=== PATIENT | female | born 1990 | race Caucasian/White ===

== ENCOUNTER 2016-09-28 07:11 | Emergency (ER) | payer BC, OTHER ==
[2016-09-28 07:25] VITALS: BP 136/75
[2016-09-28] MEDS ORDERED: Penicillin G Benzathine 1.2MU* 1,200,000 UNITS/2 ML SYR IM ONE (07:44)
--- NOTE | 2016-09-28 07:45 | UC ---
Throat Pain/Nasal Jesus HPI - HPI Summary HPI Summary: ST and earaches for past few days. Chills, body aches - History of Current Complaint Chief Complaint: UCRespiratory Stated Complaint: BILATERAL EAR PAIN,SORE THROAT Time Seen by Provider: 09/28/16 07:15 Hx Obtained From: Patient Hx Last Menstrual Period: 3 months ago ?: No Onset/Duration: Gradual Onset, Lasting Days - 3 Severity: Moderate Cough: None Associated Signs & Symptoms: Positive: Dysphagia, Fever - chills, aching. Negative: Drooling, Hoarseness, Nasal Discharge, Vomiting, Rash - Epiglottits Risk Factors Epiglottis Risk Factors: Negative - Allergies/Home Medications Allergies/Adverse Reactions: Allergies Allergy/AdvReac Type Severity Reaction Status Date / Time No Known Allergies Allergy Verified 09/28/16 07:19 Home Medications: Home Medications Dextromethorphan-Phenylephrine [Daytime Multi Symptom Col] 1 cap PO BID PRN 06/06 [History Confirmed 09/28/16] PMH/Surg Hx/FS Hx/Imm Hx Previously Healthy: Yes - "prone to Strep as child" - Surgical History Surgical History: Yes Surgery Procedure, Year, and Place: Appendectomy, 2006, [place]. Cholecystectomy, 2009, [place] - Family History Known Family History: Negative: Respiratory Disease - Social History Occupation: Employed Full-time Lives: With Family Alcohol Use: None Substance Use Type: None Smoking Status (MU): Never Smoked Tobacco Review of Systems Constitutional: Fever, Chills, Fatigue Skin: Negative Eyes: Negative ENT: Sore Throat, Ear Ache - bilat Respiratory: Negative Cardiovascular: Negative Gastrointestinal: Negative Genitourinary: Negative Motor: Negative Neurovascular: Negative Musculoskeletal: Negative Neurological: Negative Psychological: Negative All Other Systems Reviewed And Are Negative: Yes Physical Exam Triage Information Reviewed: Yes Appearance: Well-Appearing, No Pain Distress, Well-Nourished Vital Signs: Initial Vital Signs Temp 98 F 09/28/16 07:20 Pulse 91 09/28/16 07:20 Resp 16 09/28/16 07:20 BP 136/75 09/28/16 07:20 Pulse Ox 98 09/28/16 07:20 Vital Signs Reviewed: Yes Eye Exam: Normal ENT: Positive: Hearing grossly normal, Pharyngeal erythema, TMs normal, Tonsillar swelling, Tonsillar exudate. Negative: TM bulging, TM dull, TM red, Trismus, Muffled/hoarse voice Dental Exam: Normal Neck exam: Normal Neck: Positive: Supple Respiratory Exam: Normal Respiratory: Positive: Lungs clear Cardiovascular Exam: Normal Musculoskeletal Exam: Normal Neurological Exam: Normal Psychological Exam: Normal Skin Exam: Normal Throat Pain/Nasal Course/Dx - Differential Dx/Diagnosis Differential Diagnosis/HQI/PQRI: Mononucleosis, Pharyngitis, URI Provider Diagnoses: Strep pharyngitis Discharge - Discharge Plan Condition: Stable Disposition: HOME Patient Education Materials: Strep Throat (ED) Referrals: Gopi Barry DO [Primary Care Provider] -
== END 2016-09-28 08:07 | disposition home or self-care (01) ==
LOC: UCCORT 07:11
DX: J02.0 Streptococcal pharyngitis (principal); B95.5 Unspecified streptococcus as the cause of diseases classified elsewhere
CPT/HCPCS: 87651; 96372; 99201; G0463; J0558

== ENCOUNTER 2017-03-01 07:14 | Emergency (ER) | payer OTHER ==
--- NOTE | 2017-03-01 07:31 | UC ---
Throat Pain/Nasal Jesus HPI - HPI Summary HPI Summary: 26 yo female with sore throat x 1 day Preceding URI symptoms for a week no f/c Hx MARYAM - History of Current Complaint Chief Complaint: UCRespiratory Stated Complaint: SORE THROAT EARS Time Seen by Provider: 03/01/17 07:30 Hx Obtained From: Patient Hx Last Menstrual Period: 02/28/17 Onset/Duration: Gradual Onset, Lasting Days Severity: Moderate Pain Intensity: 4 Pain Scale Used: 0-10 Numeric Cough: None Related History: Seasonal Allergies - Epiglottits Risk Factors Epiglottis Risk Factors: Negative - Allergies/Home Medications Allergies/Adverse Reactions: Allergies Allergy/AdvReac Type Severity Reaction Status Date / Time No Known Allergies Allergy Verified 03/01/17 07:23 PMH/Surg Hx/FS Hx/Imm Hx Previously Healthy: Yes - Surgical History Surgical History: Yes Surgery Procedure, Year, and Place: Appendectomy, 2006, [place]. Cholecystectomy, 2009, [place]. c- section - Family History Known Family History: Negative: Cardiac Disease, Hypertension, Diabetes, Respiratory Disease - Social History Alcohol Use: None Substance Use Type: None Smoking Status (MU): Never Smoked Tobacco Review of Systems Constitutional: Negative Skin: Negative Eyes: Negative ENT: Sore Throat, Nasal Discharge Respiratory: Negative Cardiovascular: Negative Gastrointestinal: Negative Genitourinary: Negative Motor: Negative Neurovascular: Negative Musculoskeletal: Negative Neurological: Negative Psychological: Negative All Other Systems Reviewed And Are Negative: Yes Physical Exam Triage Information Reviewed: Yes Appearance: Well-Appearing, No Pain Distress, Well-Nourished Vital Signs: Initial Vital Signs Temp 98.2 F 03/01/17 07:24 Pulse 83 03/01/17 07:24 Resp 16 03/01/17 07:24 BP 123/58 03/01/17 07:24 Pulse Ox 98 03/01/17 07:24 Vital Signs Reviewed: Yes Eyes: Positive: Conjunctiva Clear ENT: Positive: Hearing grossly normal, Pharyngeal erythema, Nasal drainage, TMs normal, Tonsillar swelling. Negative: Nasal congestion, Tonsillar exudate, Trismus, Muffled/hoarse voice Dental Exam: Normal Neck: Positive: Supple, Enlarged Nodes @ - anterior cervical Respiratory: Positive: Lungs clear, Normal breath sounds, No respiratory distress, No accessory muscle use Cardiovascular: Positive: RRR, No Murmur, Pulses Normal Abdomen Description: Positive: No Organomegaly, Soft, Bruit Musculoskeletal: Positive: ROM Intact, No Edema Neurological: Positive: Alert, Muscle Tone Normal Psychological Exam: Normal Skin Exam: Normal Throat Pain/Nasal Course/Dx - Course Course Of Treatment: RS (+) - Differential Dx/Diagnosis Provider Diagnoses: strep throat Discharge - Discharge Plan Condition: Stable Disposition: HOME Prescriptions: Amoxicillin (*) [Amoxicillin 875 MG (*)] 875 mg PO BID #20 tab Patient Education Materials: Strep Throat (ED) Forms: *Work Release Referrals: Gopi Barry DO [Primary Care Provider] - 4 Days (if not better) Additional Instructions: tylenol or advil if needed for pain
[2017-03-01 07:49] VITALS: BP 123/58
== END 2017-03-01 07:45 | disposition home or self-care (01) ==
LOC: UCCORT 07:14
DX: J02.0 Streptococcal pharyngitis (principal)
CPT/HCPCS: 87651; 99212; G0463

== ENCOUNTER 2017-05-03 14:52 | Emergency (ER) | payer OTHER ==
--- NOTE | 2017-05-03 16:10 | UC ---
Throat Pain/Nasal Jesus HPI - HPI Summary HPI Summary: 26 YEAR OLD FEMALE PRESENTS WITH COMPLAINS OF A WHITE SPOT ON THE RIGHT SIDE OF HER THROAT. - History of Current Complaint Stated Complaint: WHITE ON THROAT Time Seen by Provider: 05/03/17 16:10 Hx Last Menstrual Period: 3 months ago Onset/Duration: Sudden Onset Severity: Moderate Pain Scale Used: 0-10 Numeric - 1 Cough: None Associated Signs & Symptoms: Positive: Negative Related History: Seasonal Allergies - Allergies/Home Medications Allergies/Adverse Reactions: Allergies Allergy/AdvReac Type Severity Reaction Status Date / Time No Known Allergies Allergy Verified 05/03/17 16:22 Home Medications: Home Medications Drospirenone-Ethinyl Estradiol [Charmaine 3-0.02 mg] 1 tab PO DAILY 05/03/17 [History Confirmed 05/03/17] PMH/Surg Hx/FS Hx/Imm Hx Previously Healthy: Yes - Surgical History Surgical History: Yes Surgery Procedure, Year, and Place: Appendectomy, 2006, [place]. Cholecystectomy, 2009, [place] - Family History Known Family History: Negative: Cardiac Disease, Hypertension, Diabetes, Respiratory Disease - Social History Alcohol Use: None Substance Use Type: None Smoking Status (MU): Never Smoked Tobacco Review of Systems Constitutional: Negative Skin: Negative Eyes: Negative ENT: Other - RIGHT SIDE TONSILITH Respiratory: Negative Cardiovascular: Negative Gastrointestinal: Negative Genitourinary: Negative Motor: Negative Neurovascular: Negative Musculoskeletal: Negative Neurological: Negative Psychological: Negative All Other Systems Reviewed And Are Negative: Yes Physical Exam Triage Information Reviewed: Yes Eye Exam: Normal ENT: Positive: Other: - RIGHT SIDE TONSILITH Dental Exam: Normal Neck exam: Normal Neck: Positive: 1 Respiratory Exam: Normal Cardiovascular Exam: Normal Abdominal Exam: Normal Musculoskeletal Exam: Normal Neurological Exam: Normal Psychological Exam: Normal Skin Exam: Normal Throat Pain/Nasal Course/Dx - Differential Dx/Diagnosis Provider Diagnoses: RIGHT SIDED TONSILITH Discharge - Discharge Plan Condition: Stable Disposition: HOME Prescriptions: Chlorhexidine Gluconate (Mouth [Peridex] 0.12 % MT TID PC #1 bottle Patient Education Materials: Pharyngitis (ED) Referrals: Gopi Barry DO [Primary Care Provider] - If Needed
[2017-05-03 16:22] VITALS: BP 116/81
== END 2017-05-03 16:36 | disposition home or self-care (01) ==
LOC: UCCORT 14:52
DX: J35.8 Other chronic diseases of tonsils and adenoids (principal); Z90.49 Acquired absence of other specified parts of digestive tract
CPT/HCPCS: 87651; 99212; G0463

== ENCOUNTER 2018-02-02 07:45 | Emergency (ER) | payer OTHER ==
[2018-02-02 08:12] VITALS: BP 123/55
--- NOTE | 2018-02-02 08:26 | UC ---
Complaint Female HPI - HPI Summary HPI Summary: Dysuria since yesterday. Prior UTI as a child. No fever, vomiting, back pain, flank pain, vaginal discharge or pain. - History Of Current Complaint Chief Complaint: UCGU Stated Complaint: URINARY COMPLAINT Time Seen by Provider: 02/02/18 08:10 Hx Obtained From: Patient Hx Last Menstrual Period: 01/27/18 Onset/Duration: Sudden Onset, Lasting Hours Timing: Constant, Lasting Hours Severity Initially: Moderate Severity Currently: Moderate Pain Intensity: 0 Character: Burning Aggravating Factor(s): Urination Alleviating Factor(s): Nothing Associated Signs And Symptoms: Positive: Nausea. Negative: Fever, Back Pain, Vaginal Bleeding/Discharge, Vaginal Discharge, Vomiting(# Of Episodes =), Genital Swelling, Genital Blisters - Allergies/Home Medications Allergies/Adverse Reactions: Allergies Allergy/AdvReac Type Severity Reaction Status Date / Time No Known Allergies Allergy Verified 02/02/18 08:07 Home Medications: Home Medications Eth Estradiol/Drospirenone(NF) [Carlyn 28(NF)] 1 tab PO DAILY 02/02/18 [History Confirmed 02/02/18] PMH/Surg Hx/FS Hx/Imm Hx Previously Healthy: No - uti. - Surgical History Surgical History: Yes Surgery Procedure, Year, and Place: Appendectomy, 2006, [place]. Cholecystectomy, 2009, [place]. - Family History Known Family History: Negative: Cardiac Disease, Hypertension, Diabetes, Respiratory Disease - Social History Alcohol Use: None Substance Use Type: None Smoking Status (MU): Never Smoked Tobacco Review of Systems Genitourinary: Dysuria All Other Systems Reviewed And Are Negative: Yes Physical Exam Triage Information Reviewed: Yes Appearance: Well-Appearing, No Pain Distress, Obese Vital Signs: Initial Vital Signs Temp 98.8 F 02/02/18 08:08 Pulse 61 02/02/18 08:08 Resp 16 02/02/18 08:08 BP 123/55 02/02/18 08:08 Pulse Ox 99 02/02/18 08:08 Vital Signs Reviewed: Yes Eyes: Positive: Conjunctiva Clear ENT: Positive: Normal ENT inspection Neck: Positive: Supple, Nontender, No Lymphadenopathy. Negative: Nuchal Rigidity Respiratory: Positive: No accessory muscle use. Negative: Respiratory distress Cardiovascular: Positive: Brisk Capillary Refill Abdominal Exam: Other - supra pubic tenderness. Abdomen Description: Positive: No Organomegaly, Soft. Negative: CVA Tenderness (R), CVA Tenderness (L), Distended, Guarding Musculoskeletal: Positive: Strength Intact, ROM Intact, No Edema Neurological: Positive: Alert, Muscle Tone Normal. Negative: Fatigued Psychological: Positive: Age Appropriate Behavior Skin: Negative: rashes Complaint Female Dx - Course Course Of Treatment: she agrees to return for any worsening or new symptoms and these were described in detail. - Differential Dx/Diagnosis Provider Diagnoses: uti. Discharge - Sign-Out/Discharge Documenting (check all that apply): Discharge/Admit/Transfer - Discharge Plan Condition: Good Disposition: HOME Prescriptions: Nitrofurantoin Macrocrystals* [Macrodantin 100 mg*] 100 mg PO BID #20 cap Patient Education Materials: Urinary Tract Infection in Women (ED) Referrals: Gopi Barry DO [Primary Care Provider] - - Billing Disposition and Condition Condition: GOOD Disposition: HOME
== END 2018-02-02 08:27 | disposition home or self-care (01) ==
LOC: UCCORT 07:45
DX: N39.0 Urinary tract infection, site not specified (principal); B96.20 Unspecified Escherichia coli [E. coli] as the cause of diseases classified elsewhere
CPT/HCPCS: 81003; 84702; 87077; 87086; 87186; 99212; G0463

== ENCOUNTER 2024-07-04 07:25 | Inpatient (IN) ==
[~2024-07-04 07:25] MED LIST: NS 0.45% 1000 ml BAG 1,000 ML IV SCH; Naloxone 0.4 mg VIAL 0.4 mg/ml 1 ml VIAL IV PRN; fentaNYL 100 mcg/2 ml 50 MCG/ML VIAL IV PRN
[2024-07-04] MEDS: Buffered Lidocaine 1% SYRIN 1 ml INTRADERM ONE (07:41)
[2024-07-04] MEDS: Acetaminophen IV 1 GM/100ML 1,000 MG/100 ML BAG IV ONE (07:41)
[2024-07-04] MEDS ORDERED: Scopolamine 1 mg/72hr PATCH ONE (07:50)
[2024-07-04] MEDS ORDERED: ceFAZolin 1 GM in Dextrose 1 GM/50 ML BAG ONE (07:51)
[2024-07-04] MEDS ORDERED: ceFAZolin 2 GM PREMIX 2 GM/50 ML BAG ONE (07:51)
[2024-07-04] MEDS ORDERED: Midazolam 2 mg/2 ml VIAL 1 mg/ml 2 ml VIAL (2 mg) ONE (07:56)
[2024-07-04] MEDS ORDERED: fentaNYL 100 mcg/2 ml 50 MCG/ML VIAL ONE (07:56)
[2024-07-04] MEDS ORDERED: Propofol 10 MG/ML 20 ML BTL ONE (08:03)
[2024-07-04] MEDS ORDERED: Lidocaine 2% PF 5 ML VIAL ONE (08:03)
[2024-07-04 08:08] LABS: Rapid COVID-19 Molecular Undetected (Undetected)
[2024-07-04] MEDS: Lactated Ringers 1000 ml BAG 1,000 ML IV SCH ×2 (08:24→15:11)
[2024-07-04] MEDS: Scopolamine 1 mg/72hr PATCH TRANSDERM ONE (08:24)
[2024-07-04] MEDS ORDERED: Bupivacaine 0.25% EPI 200,000 30 ML SDV ONE (09:21)
[2024-07-04] MEDS ORDERED: Methylene Blue 1% (ANTIDOTE) 10 MG/ML 10 ML SDV VIAL IVPB ONE (09:21)
[2024-07-04] MEDS ORDERED: Dexamethasone IV 4 MG/ML VIAL 1 ml VIAL ONE ×2 (10:00→13:45)
[2024-07-04] MEDS ORDERED: Ondansetron 4 mg VIAL 2 MG/ML 2 ml VIAL ONE ×3 (10:00→13:45)
[2024-07-04] MEDS ORDERED: Rocuronium 50 mg VIAL 10 mg/ml 5 ml VIAL (50 mg) ONE ×2 (10:08)
[2024-07-04] MEDS ORDERED: HYDROmorphone 0.5 MG/0.5 ML SYRINGE ONE ×2 (10:13→10:50)
[2024-07-04] MEDS ORDERED: Acetaminophen IV 1 GM/100ML 1,000 MG/100 ML BAG IV PRN (12:39)
[2024-07-04] MEDS ORDERED: HYDROmorphone 1 MG/1 ML SYRINGE IV SLOW PU PRN (12:39)
[2024-07-04] MEDS ORDERED: Metoclopramide 5 MG/ML VIAL (10 mg) ONE (12:45)
[2024-07-04] MEDS: Ondansetron 4 mg VIAL 2 MG/ML 2 ml VIAL IV PRN ×2 (12:47→20:48)
[2024-07-04] MEDS: Metoclopramide 5 MG/ML VIAL (10 mg) IV PRN (12:47)
[2024-07-04] MEDS ORDERED: Prochlorperazine 5 mg/ml 2 ml VIAL (10 mg) ONE (13:55)
[2024-07-04] MEDS: Prochlorperazine 5 mg/ml 2 ml VIAL (10 mg) IV ONE (13:58)
[2024-07-04] MEDS: Heparin 5000 UNITS/ML 1 mL VIAL SUBCUT SCH (16:50)
[2024-07-04] MEDS: HYDROmorphone 0.5 MG/0.5 ML SYRINGE IV SLOW PU PRN (20:45)
[2024-07-05 09:41] VITALS: BP 131/70
[2024-07-05] MEDS ORDERED: D5W 1/2 NS KCl 20 meq 1000 ml 1,000 ML IV SCH (15:00)
== END 2024-07-05 13:45 | disposition home or self-care (01) | DRG 621 ==
LOC: AA 07:25 → SSU 14:53
PROVIDERS: ADMIT Surgery; ATTEND Surgery